=== PATIENT | male | born 1955 | race Caucasian/White ===

== ENCOUNTER 2018-04-13 11:55 | Inpatient (IN) | payer OTHER ==
[2018-04-13 12:25] LABS: BILIRUBIN,URINE NEGATIVE (NEG); CLARITY,URINE CLEAR; COLOR,URINE YELLOW; GLUCOSE,URINE 500 mg/dL (NEG); NITRITE,URINE NEGATIVE (NEG); PROTEIN,URINE 100 mg/dL (NEG-TRACE); UROBILINOGEN,URINE 0.2 mg/dL (0.2 mg/dL)
[2018-04-13] MEDS ORDERED: MORPHINE SULFATE 4 MG/ML DISP.SYRIN. (12:29)
[2018-04-13 12:30] LABS: BASO % 0 % (0-3); EOS % 0 % (0-3); HEMATOCRIT 47.6 % (39.0-53.0); HEMOGLOBIN 16.6 g/dL (13.0-17.5); LYMPH # 0.6 x10^3/uL (1.0-4.8); LYMPH % 4 % (24-48); MEAN CORPUSCULAR HEMOGLOBIN 32 pg (25-35); MEAN CORPUSCULAR HGB CONC 35 g/dL (31-37); MEAN CORPUSCULAR VOLUME 93 fL (79-100); MONO # 0.7 x10^3/uL (0.0-1.1); MONO % 5 % (0-9); NEUT # 12.4 x10^3uL (1.8-7.7); NEUT % 90 % (31-73); PLATELET COUNT 240 x10^3/uL (140-400); RED BLOOD COUNT 5.15 x10^6/uL (4.30-5.70); RED CELL DISTRIBUTION WIDTH 14.1 % (11.5-14.5); WHITE BLOOD COUNT 13.8 x10^3/uL (4.0-11.0)
[2018-04-13 12:31] LABS: ADD MAN DIFF? YES
[2018-04-13] MEDS: ONDANSETRON PF 4 MG/2 ML VIAL. IV (12:32)
[2018-04-13] MEDS: MORPHINE SULFATE 4 MG/ML DISP.SYRIN. IV (12:34)
[2018-04-13 12:35] LABS: BACTERIA,URINE 0 /HPF (0-FEW); WBC,URINE OCC /HPF (0-4)
[2018-04-13] MEDS: IV NORMAL SALINE 1000ML BAG 1,000 ML IV ×2 (12:36→20:14)
[2018-04-13 12:48] LABS: ANION GAP 9 (6-14); BLOOD UREA NITROGEN 17 mg/dL (8-26); BUN/CREATININE RATIO 11 (6-20); CALCIUM 8.8 mg/dL (8.5-10.1); CARBON DIOXIDE 27 mmol/L (21-32); CHLORIDE 102 mmol/L (98-107); CREATININE 1.5 mg/dL (0.7-1.3); GFR 47.1; GLUCOSE 166 mg/dL (70-99); POTASSIUM 4.6 mmol/L (3.5-5.1); SODIUM 138 mmol/L (136-145)
[2018-04-13 12:53] LABS: % BANDS 3 % (0-9); % LYMPHS 2 % (24-48); % MONOS 3 % (0-10); % SEGS 92 % (35-66); ALBUMIN 4.2 g/dL (3.4-5.0); ALBUMIN/GLOBULIN RATIO 1.2 (1.0-1.7); ALK PHOS 98 U/L (46-116); ALT (SGPT) 31 U/L (16-63); AST (SGOT) 20 U/L (15-37); LIPASE 67 U/L (73-393); PLT ESTIMATE ADEQUATE (ADEQUATE); TOTAL BILIRUBIN 0.5 mg/dL (0.2-1.0); TOTAL PROTEIN 7.7 g/dL (6.4-8.2); TOXIC VACUOLATION SLIGHT
[2018-04-13 12:56] LABS: TROPONINI < 0.017 ng/mL (0.000-0.055)
[2018-04-13] MEDS: fentaNYL PF VIAL 100 MCG/2 ML VIAL IV ×2 (12:58→23:41)
[2018-04-13] MEDS: KETOROLAC 15 MG/ML VIAL. IV (14:20)
[2018-04-13] MEDS ORDERED: ONDANSETRON PF 4 MG/2 ML VIAL. IV (16:00)
[2018-04-13] MEDS ORDERED: MORPHINE SULFATE 4 MG/ML DISP.SYRIN. IV (16:00)
[2018-04-14] MEDS: fentaNYL PF VIAL 100 MCG/2 ML VIAL IV ×4 (02:28→15:33)
[2018-04-14] MEDS: IV NORMAL SALINE 1000ML BAG 1,000 ML IV ×2 (05:51→17:47)
[2018-04-14] MEDS ORDERED: IOHEXOL 300 MG/ML 100ML VIAL. (09:39)
[2018-04-14] MEDS ORDERED: LIDOCAINE 2% JELLY 6ML IN APPLICATOR. (09:39)
[2018-04-14] MEDS: IV DEXTROSE 5%-LACT RINGERS 1,000 ML IV ×2 (13:10→20:33)
[2018-04-14] MEDS ORDERED: ONDANSETRON PF 4 MG/2 ML VIAL. IV (15:30)
[2018-04-14] MEDS ORDERED: LIDOCAINE 1% PF 2 ML VIAL. ID (15:30)
[2018-04-14] MEDS ORDERED: fentaNYL PF VIAL 100 MCG/2 ML VIAL IV ×2 (15:30)
[2018-04-14] MEDS ORDERED: PROCHLORPERAZINE 10 MG/2 ML VIAL. IV (15:30)
[2018-04-14] MEDS ORDERED: MORPHINE SULFATE 4 MG/ML DISP.SYRIN. IV (15:30)
[2018-04-14] MEDS ORDERED: PROPOFOL 20 ML IV (15:39)
[2018-04-14] MEDS ORDERED: SEVOFLURANE 61 TO 120 MINUTES. IH (15:39)
[2018-04-14] MEDS ORDERED: ONDANSETRON PF 4 MG/2 ML VIAL. (15:39)
[2018-04-14] MEDS ORDERED: DEXAMETHASONE SOD PHOS 20 MG/5 ML VIAL. (15:39)
[2018-04-14] MEDS: IV RINGERS,LACTATED 1000ML 1,000 ML IV (16:02)
[2018-04-14] MEDS ORDERED: MORPHINE SULFATE 10 MG/ML VIAL. (16:13)
[2018-04-14] MEDS ORDERED: KETOROLAC 30 MG/ML INJ FOR OR. INJ (16:21)
[2018-04-14] MEDS ORDERED: PHENYLEPHRINE in 0.9% NACL PF 1 MG/10 ML SYRINGE. IV (16:27)
[2018-04-14] MEDS ORDERED: ePHEDrine PF IN SALINE 50 MG/5 ML DISP.SYRIN IV (16:35)
[2018-04-15] MEDS: IV DEXTROSE 5%-LACT RINGERS 1,000 ML IV (05:54)
[2018-04-16 03:23] LABS: HEMOGLOBIN A1C 5.7 % (4.8-5.6)
== END 2018-04-15 17:12 | disposition home or self-care (01) | DRG 694 ==
LOC: ER 11:55 → 6 SOUTH 14:25
PROC: 0T768DZ Dilation of Right Ureter with Intraluminal Device, Via Natural or Artificial Opening Endoscopic (ICD-10-PCS; principal; 2018-04-14 16:00)
PROC: BT1D1ZZ Fluoroscopy of Right Kidney, Ureter and Bladder using Low Osmolar Contrast (ICD-10-PCS; 2018-04-14 16:00)
DX: N13.2 Hydronephrosis with renal and ureteral calculous obstruction (principal); N18.3 Chronic kidney disease, stage 3 (moderate); D72.829 Elevated white blood cell count, unspecified; F17.210 Nicotine dependence, cigarettes, uncomplicated; R81 Glycosuria; N32.3 Diverticulum of bladder; R73.9 Hyperglycemia, unspecified; R23.3 Spontaneous ecchymoses; R31.29 Other microscopic hematuria; N40.0 Benign prostatic hyperplasia without lower urinary tract symptoms
CPT/HCPCS: 36415; 74018; 74176; 74420; 80053; 81001; 83036; 83690; 84484; 85007; 85025; 93005; 96361; 96365; 96375; 96376; 99285; 99285-25; C1769; C2617; J0690; J1100; J1885; J2270; J2370; J2405; J2704; J3010; J7030; J7120; Q9967

== ENCOUNTER 2018-05-04 11:15 | Day surgery (SDC) | payer OTHER ==
[~2018-05-04 11:15] MED LIST: IOHEXOL 300 MG/ML 100ML VIAL.; LIDOCAINE 1% PF 2 ML VIAL. ID; LIDOCAINE 2% JELLY 6ML IN APPLICATOR.; MORPHINE SULFATE 2 MG/ML DISP.SYRIN. IV; ONDANSETRON PF 4 MG/2 ML VIAL. IV; PROCHLORPERAZINE 10 MG/2 ML VIAL. IV; fentaNYL PF VIAL 100 MCG/2 ML VIAL IV
[2018-05-04] MEDS ORDERED: MIDAZOLAM HCL/PF 2 MG/2 ML VIAL. (11:46)
[2018-05-04] MEDS ORDERED: FAMOTIDINE 20 MG/2 ML VIAL (11:46)
[2018-05-04] MEDS ORDERED: LIDOCAINE 2% PF Vial for OR 5 ML VIAL. (11:46)
[2018-05-04] MEDS ORDERED: PROPOFOL 20 ML IV (11:46)
[2018-05-04] MEDS ORDERED: DEXAMETHASONE SOD PHOS 20 MG/5 ML VIAL. (11:46)
[2018-05-04] MEDS ORDERED: ONDANSETRON PF 4 MG/2 ML VIAL. (11:46)
[2018-05-04] MEDS ORDERED: fentaNYL PF VIAL 100 MCG/2 ML VIAL (11:46)
[2018-05-04] MEDS: IV RINGERS,LACTATED 1000ML 1,000 ML IV (12:00)
[2018-05-04] MEDS ORDERED: ceFAZolin 2GM PREMIX 2 GM/50 ML BAG IV (12:00)
[2018-05-04] MEDS ORDERED: DESFLURANE 31 TO 60 MINUTES IH (15:25)
== END 2018-05-04 16:32 | disposition home or self-care (01) ==
LOC: SURG 11:15
DX: N20.1 Calculus of ureter (principal); Z87.891 Personal history of nicotine dependence
CPT/HCPCS: 52356; 74420; C1769; C2617; J0690; J1100; J2001; J2250; J2405; J2704; J3010; Q9967; S0028